=== PATIENT | male | born 1985 | race Caucasian/White ===

== ENCOUNTER 2018-11-21 01:59 | Emergency (ER) | payer SELFPAY ==
[~2018-11-21] VITALS: Ht 177.8 cm; Wt 109.3 kg
--- NOTE | 2018-11-21 01:59 | NUR ---
PT KIANA BERGMAN, PREBOOK. TAKEN TO CHAIR E
[2018-11-21 02:01] VITALS: BP 156/70
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
== END 2018-11-21 02:41 ==
LOC: MED 01:59
DX: Z02.89 Encounter for other administrative examinations (principal); V43.62XA Car passenger injured in collision with other type car in traffic accident, initial encounter; Y93.89 Activity, other specified; Y92.89 Other specified places as the place of occurrence of the external cause; Y99.8 Other external cause status
CPT/HCPCS: 99283